=== PATIENT | female | born 1935 | race Caucasian/White ===

== ENCOUNTER 2019-09-30 20:58 | Emergency (ER) | payer MEDICARE, OTHER ==
[~2019-09-30] VITALS: Ht 162.6 cm; Wt 59.0 kg
[~2019-09-30 20:58] MED LIST: IBUP-1984 PO
[2019-09-30] MEDS ORDERED: ondansetron/PF 4mg/2ml inj IV ONE (21:10)
[2019-09-30] MEDS ORDERED: normal saline 1000ML IV soln IVB ONE (21:10)
[2019-09-30 21:33] LABS: BASOPHILS % (AUTO) 0.8 % (0-1); EOSINOPHILS # (AUTO) 0.2 X10'3 (0-0.9); EOSINOPHILS % (AUTO) 3.3 % (0-6); HEMATOCRIT 41.2 % (35.0-45.0); HEMOGLOBIN 13.6 g/dl (12.0-16.0); LYMPHOCYTES # (AUTO) 0.9 X10'3 (1.1-4.8); LYMPHOCYTES % (AUTO) 18.2 % (21-51); MEAN CORPUSCULAR HEMOGLOBIN 31.7 PG (27.0-31.0); MEAN CORPUSCULAR HGB CONC 32.9 g/dL (33.0-36.5); MEAN CORPUSCULAR VOLUME 96.3 FL (78-98); MEAN PLATELET VOLUME 10.8 FL (7.4-10.4); MONOCYTES # (AUTO) 0.5 X10'3 (0-0.9); MONOCYTES % (AUTO) 10.7 % (2-12); NEUTROPHILS # (AUTO) 3.3 X10'3 (1.8-7.7); PLATELET COUNT 207 X10'3 (140-440); RED BLOOD COUNT 4.28 X10'6 (4.20-5.60); RED CELL DISTRIBUTION WIDTH 14.2 % (11.5-14.5); WHITE BLOOD COUNT 4.9 X10'3 (4.5-11.0)
[2019-09-30 21:45] LABS: ALANINE AMINOTRANSFERASE 39 U/L (12-78); ALBUMIN/GLOBULIN RATIO 1.1 (1.1-1.5); ALKALINE PHOSPHATASE 107 IU/L (46-116); ANION GAP 11 (8-16); ASPARTATE AMINO TRANSFERASE 49 U/L (10-37); BILIRUBIN,TOTAL 0.3 MG/DL (0.1-1.0); BLOOD UREA NITROGEN 27 MG/DL (7-18); CALCIUM 9.1 MG/DL (8.5-10.1); CHLORIDE 105 MMOL/L (99-107); CREATININE 1.42 MG/DL (0.40-0.90); GLUCOSE 145 MG/DL (70-104); POTASSIUM 4.1 MMOL/L (3.5-5.1); SODIUM 143 MMOL/L (135-145); TOTAL CARBON DIOXIDE 27.3 MMOL/L (24-32); TOTAL PROTEIN 7.7 G/DL (6.4-8.2); eGFR 35 ML/MIN
[2019-09-30 22:08] LABS: CLARITY,URINE CLEAR (Clear); COLOR,URINE YELLOW (Yellow); GLUCOSE, URINE 100 mg/dl (Neg); KETONES,URINE NEGATIVE (Neg); LEUKOCYTE ESTERASE ,URINE NEGATIVE (Neg); NITRITES, URINE NEGATIVE (Neg); OCCULT BLOOD,URINE NEGATIVE (Neg); PROTEIN,URINE NEGATIVE (Neg); UA COLLECTION TYPE CLN CATCH MIDSTREAM; UROBILINOGEN,URINE 0.2 E.U/dL (0.2-1.0)
[2019-09-30 22:12] VITALS: BP 140/59
== END 2019-09-30 22:25 | disposition home or self-care (01) ==
LOC: ER 20:59
DX: E11.649 Type 2 diabetes mellitus with hypoglycemia without coma (principal); E11.22 Type 2 diabetes mellitus with diabetic chronic kidney disease; N18.9 Chronic kidney disease, unspecified; Z88.5 Allergy status to narcotic agent; Z79.899 Other long term (current) drug therapy
CPT/HCPCS: 36415; 80053; 81003; 82948; 85025; 93005; 96374; 99284; J2405; J7030

== ENCOUNTER 2022-06-19 21:42 | Emergency (ER) | payer MEDICARE ==
[~2022-06-19] VITALS: Ht 162.6 cm; Wt 56.8 kg
[2022-06-19 21:55] LABS: BASOPHILS # (AUTO) 0.1 X10'3 (0-0.2); BASOPHILS % (AUTO) 1.4 % (0-1); EOSINOPHILS # (AUTO) 0.3 X10'3 (0-0.9); EOSINOPHILS % (AUTO) 5.7 % (0-6); HEMATOCRIT 36.5 % (35.0-45.0); LYMPHOCYTES # (AUTO) 1.3 X10'3 (1.1-4.8); LYMPHOCYTES % (AUTO) 24.2 % (21-51); MEAN CORPUSCULAR HEMOGLOBIN 31.7 PG (27.0-31.0); MEAN CORPUSCULAR HGB CONC 32.9 g/dL (33.0-36.5); MEAN CORPUSCULAR VOLUME 96.2 FL (78-98); MONOCYTES # (AUTO) 0.7 X10'3 (0-0.9); MONOCYTES % (AUTO) 13.2 % (2-12); NEUTROPHILS % (AUTO) 55.5 % (42-75); PLATELET COUNT 221 X10'3 (140-440); RED BLOOD COUNT 3.79 X10'6 (4.20-5.60); RED CELL DISTRIBUTION WIDTH 13.9 % (11.5-14.5); WHITE BLOOD COUNT 5.5 X10'3 (4.5-11.0)
[2022-06-19 22:09] LABS: ALANINE AMINOTRANSFERASE 18 U/L (12-78); ALBUMIN 3.8 G/DL (3.4-5.0); ALBUMIN/GLOBULIN RATIO 1.2 (1.1-1.5); ALKALINE PHOSPHATASE 97 IU/L (46-116); ANION GAP 8 (8-16); ASPARTATE AMINO TRANSFERASE 25 U/L (10-37); BILIRUBIN,TOTAL 0.3 MG/DL (0.1-1.0); BLOOD UREA NITROGEN 25 MG/DL (7-18); BUN/CREATININE RATIO 18.9 (6.6-38.0); CALCIUM 9.6 MG/DL (8.5-10.1); CHLORIDE 102 MMOL/L (99-107); CREATININE 1.32 MG/DL (0.40-0.90); GLUCOSE 98 MG/DL (70-104); SODIUM 138 MMOL/L (135-145); TOTAL CARBON DIOXIDE 28.2 MMOL/L (24-32); TOTAL PROTEIN 7.1 G/DL (6.4-8.2); eGFR 38 ML/MIN
[2022-06-20 02:00] VITALS: BP 131/71
== END 2022-06-20 02:52 | disposition home or self-care (01) ==
LOC: ER 21:42
DX: R10.13 Epigastric pain (principal); E11.22 Type 2 diabetes mellitus with diabetic chronic kidney disease; N18.9 Chronic kidney disease, unspecified; Z88.5 Allergy status to narcotic agent
CPT/HCPCS: 36415; 71045; 74176; 80053; 83880; 84484; 85025; 93005; 99285

== ENCOUNTER 2022-10-18 13:55 | Inpatient (IN) | payer MEDICARE ==
[~2022-10-18] VITALS: Ht 162.6 cm; Wt 56.1 kg
[2022-10-18 14:26] LABS: BASOPHILS % (AUTO) 0.6 % (0-1); EOSINOPHILS % (AUTO) 0.5 % (0-6); HEMATOCRIT 37.1 % (35.0-45.0); HEMOGLOBIN 12.3 g/dl (12.0-16.0); LYMPHOCYTES # (AUTO) 0.5 X10'3 (1.1-4.8); LYMPHOCYTES % (AUTO) 8.3 % (21-51); MEAN CORPUSCULAR HEMOGLOBIN 32.1 PG (27.0-31.0); MEAN CORPUSCULAR HGB CONC 33.3 g/dL (33.0-36.5); MEAN CORPUSCULAR VOLUME 96.4 FL (78-98); MEAN PLATELET VOLUME 10.1 FL (7.4-10.4); MONOCYTES # (AUTO) 0.4 X10'3 (0-0.9); MONOCYTES % (AUTO) 6.6 % (2-12); NEUTROPHILS # (AUTO) 4.8 X10'3 (1.8-7.7); PLATELET COUNT 204 X10'3 (140-440); RED BLOOD COUNT 3.84 X10'6 (4.20-5.60); RED CELL DISTRIBUTION WIDTH 13.7 % (11.5-14.5); WHITE BLOOD COUNT 5.7 X10'3 (4.5-11.0)
--- NOTE | 2022-10-18 14:30 | NUR ---
WHILE IN THE [employer] MANAGER STATED THAT PT WENT BRADYCARDIC DOWN TO 10BMP AND THEN HAD SOME ARM AND LEG STIFFNESS AND ATTEMPTED TO SIT UP FROM THE GURNEY. PT HAD VERY BRIEF LOC AND WAS CONFUSED FOR ABOUT 30 SECONDS FOLLOWING EVENT. Addendum: 10/18/22 at 1433 by CLARA REPEAT ACCU CHECK AND EKG FOLLOWING EVENT
[2022-10-18 14:48] LABS: ALANINE AMINOTRANSFERASE 16 U/L (12-78); ALBUMIN 3.5 G/DL (3.4-5.0); ALBUMIN/GLOBULIN RATIO 1.1 (1.1-1.5); ALKALINE PHOSPHATASE 60 IU/L (46-116); ANION GAP 10 (8-16); ASPARTATE AMINO TRANSFERASE 24 U/L (10-37); BILIRUBIN,TOTAL 0.5 MG/DL (0.1-1.0); BLOOD UREA NITROGEN 22 MG/DL (7-18); BUN/CREATININE RATIO 16.5 (10.0-20.0); CALCIUM 9.3 MG/DL (8.5-10.1); CHLORIDE 102 MMOL/L (99-107); CREATININE 1.33 MG/DL (0.40-0.90); GLUCOSE 177 MG/DL (70-104); POTASSIUM 4.8 MMOL/L (3.5-5.1); SODIUM 138 MMOL/L (135-145); TOTAL CARBON DIOXIDE 26.3 MMOL/L (24-32); TOTAL PROTEIN 6.6 G/DL (6.4-8.2); eGFR 38 ML/MIN
[2022-10-18] MEDS ORDERED: ondansetron/PF 4mg/2ml inj IV ONE ×2 (14:55→15:15)
[2022-10-18] MEDS ORDERED: aspirin 325mg tablet PO ONE (15:15)
[2022-10-18] MEDS ORDERED: nitroGLYCERIN 1gm ointment UD TP ONE (15:15)
[2022-10-18] MEDS ORDERED: ondansetron 4mg rapidly disintigrating tab PO PRN (17:25)
[2022-10-18] MEDS ORDERED: bisacodyl 10mg suppository rectal RC PRN (17:25)
[2022-10-18] MEDS ORDERED: PERFLUTREN PROTEIN-A MICROSPHR (Optison) 0.22 MG/ML 3ML VIAL IV ONE (17:25)
[2022-10-18] MEDS ORDERED: potassium Cl 20 mEq SR tablet PO PRN ×2 (17:25)
[2022-10-18] MEDS ORDERED: acetaminophen 325mg tablet PO PRN ×2 (17:25)
[2022-10-18] MEDS ORDERED: potassium Cl 40MEQ/1/2NS 520ml 520 ML IV PRN (17:25)
[2022-10-18] MEDS ORDERED: magnesium Cl slow-release 64mg tablet PO PRN (17:25)
[2022-10-18] MEDS ORDERED: morphine 2 MG/ML inj. syringe IV PRN ×2 (17:25)
[2022-10-18] MEDS ORDERED: mag hydrox/Alum hydrox/simeth 30ml oral suspension PO PRN ×2 (17:25)
[2022-10-18] MEDS ORDERED: acetaminophen 650mg rectal suppository RC PRN (17:25)
[2022-10-18] MEDS ORDERED: magnesium 4gm in 100ml NS 100 ML IV PRN (17:25)
[2022-10-18] MEDS ORDERED: magnesium 2GM in 50ml NS 50 ML IV PRN (17:25)
[2022-10-18] MEDS ORDERED: magnesium hydroxide 30ml (MOM) UD suspension PO PRN (17:25)
[2022-10-18] MEDS: normal saline 1000ml 1,000 ML IV SCH (17:47)
[2022-10-18 18:07] LABS: HEMOGLOBIN A1C 6.5 % (4.5-6.2)
[2022-10-18 18:09] LABS: CHOL/HDL RATIO 1.9 (0.00-4.99); CHOLESTEROL 168 MG/DL (0-200); HDL CHOLESTEROL 89 MG/DL (35-60); LDL CHOLESTEROL 61 MG/DL (50-100); TRIGLYCERIDES 30 MG/DL (20-135)
--- NOTE | 2022-10-18 18:39 | NUR ---
PATIENT INSTRUCTED TO TURN INSULIN PUMP BACK ON PER DR. HAHN.
[2022-10-18] MEDS ORDERED: DEXTROSE 15 GM of carb/4 tabs (each vial/BOTTLE has 4 tablets) PO PRN ×2 (18:45)
[2022-10-18] MEDS ORDERED: metoprolol tartrate 1mg/ml inj IV PRN (18:45)
[2022-10-18] MEDS ORDERED: insulin Lispro (HumaLOG) vial - multi-dose SQ SCH (18:45)
[2022-10-18] MEDS ORDERED: dextrose 50%-water 50ml dispensing syringe IV PRN ×2 (18:45)
[2022-10-18] MEDS ORDERED: MESSAGE TO PHARMACY PO ONE (18:45)
[2022-10-18] MEDS ORDERED: aminophylline 250mg/10ml inj. IV PRN (18:45)
[2022-10-18] MEDS ORDERED: regadenoson 0.4mg/5ml syringe IV PRN (18:45)
[2022-10-18] MEDS ORDERED: glucagon, human recombinant 1mg kit SUBCUT PRN (18:45)
[2022-10-18] MEDS: K and/or MAG REPLACEMENT MC SCH (19:26)
[2022-10-18] MEDS: docusate sod 100mg capsule PO SCH (19:30)
[2022-10-18] MEDS: nitroGLYCERIN 0.4mg SUBLingual tab SL PRN (20:18)
--- NOTE | 2022-10-18 20:35 | NUR ---
PT REPORTING STERNAL CHEST TIGHTNESS 3/10. PT GIVEN 1 SUBLINGUAL NITRO. PAIN HAS SUBSIDED.
[2022-10-18] MEDS ORDERED: insulin glargine (Lantus) pen - multi-dose SQ SCH (21:00)
[2022-10-18] MEDS ORDERED: temazepam 15mg capsule PO PRN (21:00)
[2022-10-19] VITALS (13 sets, daily range): BP systolic 111–148; BP diastolic 42–72
[2022-10-19] MEDS: ondansetron/PF 4mg/2ml inj IV PRN ×2 (02:13→07:37)
[2022-10-19] MEDS: nitroGLYCERIN 0.4mg SUBLingual tab SL PRN ×2 (02:16→02:31)
[2022-10-19 06:16] LABS: BASOPHILS % (AUTO) 0.2 % (0-1); HEMOGLOBIN 11.1 g/dl (12.0-16.0); MEAN PLATELET VOLUME 10.6 FL (7.4-10.4)
[2022-10-19 06:20] LABS: EOSINOPHILS % (AUTO) 0.2 % (0-6); HEMATOCRIT 32.8 % (35.0-45.0); LYMPHOCYTES # (AUTO) 0.6 X10'3 (1.1-4.8); LYMPHOCYTES % (AUTO) 7.5 % (21-51); MEAN CORPUSCULAR HEMOGLOBIN 32.7 PG (27.0-31.0); MEAN CORPUSCULAR HGB CONC 33.9 g/dL (33.0-36.5); MEAN CORPUSCULAR VOLUME 96.4 FL (78-98); MONOCYTES # (AUTO) 0.8 X10'3 (0-0.9); MONOCYTES % (AUTO) 10.1 % (2-12); NEUTROPHILS # (AUTO) 6.6 X10'3 (1.8-7.7); PLATELET COUNT 187 X10'3 (140-440); RED CELL DISTRIBUTION WIDTH 13.8 % (11.5-14.5)
[2022-10-19 06:33] LABS: ALANINE AMINOTRANSFERASE 18 U/L (12-78); ALBUMIN/GLOBULIN RATIO 1.1 (1.1-1.5); ALKALINE PHOSPHATASE 49 IU/L (46-116); ANION GAP 11 (8-16); ASPARTATE AMINO TRANSFERASE 21 U/L (10-37); BILIRUBIN,TOTAL 0.4 MG/DL (0.1-1.0); BLOOD UREA NITROGEN 22 MG/DL (7-18); BUN/CREATININE RATIO 17.3 (10.0-20.0); CALCIUM 8.4 MG/DL (8.5-10.1); CHLORIDE 106 MMOL/L (99-107); CREATININE 1.27 MG/DL (0.40-0.90); GLUCOSE 149 MG/DL (70-104); MAGNESIUM 1.7 MG/DL (1.5-2.4); POTASSIUM 4.6 MMOL/L (3.5-5.1); SODIUM 143 MMOL/L (135-145); TOTAL PROTEIN 5.7 G/DL (6.4-8.2); eGFR 40 ML/MIN
--- NOTE | 2022-10-19 06:45 | NUR ---
Patient in room PCU 3027. I have received report from ANTHONY Arora and had the opportunity to ask questions and assume patient care.
[2022-10-19 07:10] LABS: H PYLORI ANTIBODY NEGATIVE (Neg)
[2022-10-19] MEDS ORDERED: pantoprazole 40mg Tablet.DR PO SCH (07:30)
[2022-10-19] MEDS: normal saline 1000ml 1,000 ML IV SCH ×2 (07:35→14:19)
[2022-10-19] MEDS: insulin pump.resvr SQ SCH ×2 (07:42→13:00)
[2022-10-19] MEDS: K and/or MAG REPLACEMENT MC SCH (08:00)
[2022-10-19] MEDS ORDERED: aspirin 81mg tab.chew PO SCH (08:30)
--- NOTE | 2022-10-19 08:48 | NUR ---
DM consult: Per EMR pt with T1DM, well controlled with A1c 6.5%, DM education not warranted at this time. Recommend continuing without CHO controlled diet restriction in view of T1DM well controlled and geriatric age. Will continue to follow. Addendum: 10/19/22 at [address] Amended: Links added.
[2022-10-19] MEDS: docusate sod 100mg capsule PO SCH (10:28)
[2022-10-19] MEDS ORDERED: ASPI81TA53 PO (12:59)
[2022-10-19] MEDS ORDERED: PANT40TA54 PO ×2 (12:59→13:51)
[2022-10-19] MEDS ORDERED: ASPI-1265 PO (13:52)
--- NOTE | 2022-10-19 15:05 | NUR ---
DC inst provided to pt. IV DC'd, tip intact. All belongings sent w/pt. WC to vehicle.
== END 2022-10-19 15:21 | disposition home or self-care (01) | DRG 311 ==
LOC: ER 13:56 → ED HOLD 17:26 → PCU 3S 10-19 01:59
PROVIDERS: ADMIT Family Medicine; ATTEND Family Medicine
PROC: 4A02XM4 Measurement of Cardiac Total Activity, External Approach (ICD-10-PCS; principal; 2022-10-19)
PROC: 3E073KZ Introduction of Other Diagnostic Substance into Coronary Artery, Percutaneous Approach (ICD-10-PCS; 2022-10-19)
DX: I20.9 Angina pectoris, unspecified (principal); Z66 Do not resuscitate; F43.21 Adjustment disorder with depressed mood; R00.1 Bradycardia, unspecified; E11.22 Type 2 diabetes mellitus with diabetic chronic kidney disease; F32.A Depression, unspecified; N18.30 Chronic kidney disease, stage 3 unspecified; Z96.41 Presence of insulin pump (external) (internal); Z79.4 Long term (current) use of insulin; Z88.5 Allergy status to narcotic agent; Z79.899 Other long term (current) drug therapy; Z79.82 Long term (current) use of aspirin
CPT/HCPCS: 36415; 71045; 78452; 80053; 80061; 82948; 83036; 83735; 83880; 84443; 84484; 85025; 86677; 87081; 93005; 93017; 93306; 99285; A9500; G0378; J1815; J2405; J2785; J7030